=== PATIENT | male | born 1990 | race Caucasian/White ===

== ENCOUNTER 2019-10-04 20:08 | Emergency (ER) | payer SELFPAY ==
[~2019-10-04] VITALS: Ht 162.6 cm; Wt 96.6 kg
[2019-10-04 20:38] VITALS: Ht 162.6 cm; Wt 96.6 kg
[2019-10-04 22:19] VITALS: BP 130/77
== END 2019-10-04 22:19 | disposition home or self-care (01) ==
LOC: ED 20:08
DX: R05 Cough (principal); R06.02 Shortness of breath; R19.7 Diarrhea, unspecified; R11.10 Vomiting, unspecified; Z20.828 Contact with and (suspected) exposure to other viral communicable diseases
CPT/HCPCS: Q0092; U0003-CS